=== PATIENT | male | born 1995 | race Caucasian/White ===

== ENCOUNTER 2020-01-04 19:32 | Observation (INO) | payer OTHER, SELFPAY ==
[2020-01-04] VITALS (7 sets, daily range): BP systolic 118–138; BP diastolic 64–86; PULSE 56–77; RESP 14–20; TEMP 36.3–37.1; O2SAT 98–100; BMI 21.5
--- NOTE | ~2020-01-04 | XR_ITS ---
EXAMINATION: XR chest 2V DATE: 01/04/2020 20:31 INDICATION: Tachycardia TECHNIQUE: PA and lateral views of the chest are obtained. COMPARISON: 09/18/2017 FINDINGS: The lungs are free of acute opacities. There is no pleural effusion or pneumothorax. The ca rdiomediastinal silhouette is normal. The visualized bones and soft tissues are unremarkable. IMPRESSION: 1. No acute cardiopulmonary abnormality. Reviewed, dictated and finalized at location A.
--- NOTE | ~2020-01-04 | CT_ITS ---
EXAMINATION: CT cervical spine wo con DATE: 01/05/2020 01:42 INDICATION: Status post fall. Head injury. TECHNIQUE: Computed tomography (CT) of the cervical spine was performed without intravenous contrast. The dose-length product was 167 mGy-cm. Automated exposure control and iterative reconstruction tech nique were employed. COMPARISON: None FINDINGS: No acute fracture, subluxation or dislocation. Odontoid process within normal limits. Small osteochondral defect of C2, likely of no clinical significance. No paravertebral soft tissue abnorma lity. No spinal stenosis. Lung apices are normal. IMPRESSION: 1. No acute abnormality of the cervical spine. Reviewed, dictated and finalized at location A.
--- NOTE | ~2020-01-04 | CT_ITS ---
EXAMINATION: CT BRAIN W/O DATE: 01/05/2020 01:41 INDICATION: Headache after fall TECHNIQUE: Computed tomography (CT) of the head was performed without intravenous contrast. The dose- length product was 605.33 mGy-cm. COMPARISON: 09/18/2017. FINDINGS: Normal brain parenchymal volume for age. Normal mcknight-white differentiation. No acute intrac ranial hemorrhage, infarction, mass or mass effect. No ventriculomegaly or midline shift. Midline sagittal images demonstrate a normal corpus callosum, c raniovertebral junction and sella turcica. Basilar cisterns are patent. Paranasal sinuses and mastoids are pneumatized. No depressed skull fractures. IMPRESSION: 1. No acute intracranial abnormality. Reviewed, dictated and finalized at location A.
--- NOTE | 2020-01-04 19:43 | ECG_ITS ---
Measurements Intervals [place] Rate: 56 P: 22 ID: 113 QRS: 49 QRSD: 92 T: 22 QT: 366 QTc: 354 Interpretive Statements SINUS BRADYCARDIA WITH SHORT ID INTERVAL BASELINE ARTIFACT- I, II, III, AVR, AVL,A VF BORDERLINE ECG Electronically Signed On 01-05-2020 7:44:12 CDT by Nicola Noguera D.O.
[2020-01-04 19:53] LABS: Basophils Absolute Auto 0.1 K/mm3 (0.0-0.1); Basophils Percent Auto 0.7 % (0.2-1.2); Eosinophils Absolute Auto 0.1 K/mm3 (0-0.3); Eosinophils Percent Auto 1.8 % (0-4.4); Hematocrit 46.6 % (42.0-52.0); Hemoglobin 16.4 g/dL (14.0-18.0); Immature Granulocyte Absolute 0.02 K/mm3 (0.00-0.031); Immature Granulocyte Percent A 0.3 % (0-0.5); Lymphocytes Absolute Auto 2.35 K/mm3 (0.9-3.2); Lymphocytes Percent Auto 30.7 % (18.3-44.2); Mean Corpuscular HGB Conc 35.2 g/dl (32-36); Mean Corpuscular Hemoglobin 30.4 pg (26-34); Mean Corpuscular Volume 86.3 fl (80-100); Mean Platelet Volume 9.4 fl (7.4-10.4); Monocytes Absolute Auto 0.8 K/mm3 (0.1-0.6); Monocytes Percent Auto 9.9 % (2.6-8.5); Neutrophils Absolute Auto 4.3 K/mm3 (1.3-6.7); Neutrophils Percent Auto 56.6 % (45.5-73.1); Platelet Count Result 226 k/mm3 (150-375); Red Cell Distribution Width 12.1 % (11.5-14.5); White Blood Count 7.7 K/mm3 (4.5-10.0)
[2020-01-04 20:03] LABS: Prothrombin Time 13.3 Seconds (11.1-14.7)
[2020-01-04 20:04] LABS: Partial Thromboplastin Time 27.3 SECONDS (22.3-36.8)
[2020-01-04 20:09] LABS: Anion Gap 8 mmol/L (8-16); Blood Urea Nitrogen 10 mg/dL (9-20); Calcium 9.8 mg/dL (8.4-10.2); Carbon Dioxide 30 mmol/L (22-30); Chloride 98 mmol/L (98-107); Estimated CRCL calculation 97 ml/min; Estimated Glomerular Filt Rate > 60; Glucose 99 mg/dL (75-110); Potassium 3.2 mmol/L (3.4-5.0); Sodium 136 mmol/L (137-145)
[2020-01-04 20:21] LABS: Troponin I < 0.012 ng/mL (0.000-0.034)
--- NOTE | 2020-01-04 20:22 | ED.ARRPALP ---
HPI - Arrhythmia/Palpitations General Chief Complaint: Arrhythmia/Palpitations Stated Complaint: head injury; heart problems Time Seen by Provider: 01/04/20 19:41 Source: patient Mode of arrival: ambulatory Limitations: no limitations History of Present Illness HPI narrative: 24 years old white male presents with palpitation started 4 weeks ago. Intermittent. Fluctuating between tachycardia, bradycardia and sometimes complete stop. Patient woke up yesterday 5:30 a.m. to go to the bathroom, stood next to the bed, numbness of both legs, could not move forward, then fell struck the head on The floor, Loss of consciousness for a few seconds. Today patient been complaining of intermittent dizziness, left work and drove himself to the emergency room. History of depression, quit taking medication 3 months ago because he believes that is not working Related Data Home Medications Medication Instructions Recorded Confirmed No Home Medications 01/04/20 01/04/20 Allergies Allergy/AdvReac Type Severity Reaction Status Date / Time No Known Allergies Allergy Verified 01/04/20 19:42 Review of Systems Review of Systems: Narrative: CONSTITUTIONAL: Denies fever, chills, or sweats. EYES: Denies visual changes, redness, or discharge. ENT: Denies rhinorrhea, congestion, sore throat, or otalgia. CARDIOVASCULAR: Denies chest pain, palpitations, or edema. RESPIRATORY: Denies cough or dyspnea. GASTROINTESTINAL: Denies abdominal pain, nausea, vomiting, or diarrhea. GENITOURINARY: Denies dysuria or hematuria. SKIN: Denies rash or itching. MUSCULOSKELETAL: Denies back pain, joint pain, or myalgia. NEUROLOGIC: Denies headache, numbness, or weakness. PSYCHIATRIC: Denies anxiety or depression. [facility] Past Medical History Medical History (Updated 01/04/20 @ 21:21 by Brandy Montana MD) Depression Family History Family History (Updated 09/25/17 @ 13:37 by DOCTOR UNKNOWN) Mother Patient's mother is in good health Father Patient's father is in good health Grandparent Family history of malignant neoplasm, Onset Age: 32 Family history of Alzheimer's disease, Onset Age: 88 Family history of dementia, Onset Age: 82 Social History Social History Smoking status: Never smoker Second hand tobacco smoke exposure: No Alcohol intake: current Gender identity (if verbalized by the patient): Male Exam Narrative: Exam Narrative: General appearance: Well-developed, well-nourished, anxious Skin: Normal color Head: Normocephalic, nontraumatic Eyes: Clear conjunctiva ENT: Oropharynx normal, ears normal, nose normal Neck: Supple, nontender Chest and respiratory: Airway patent, no respiratory distress, no accessory muscle use Heart: Bradycardic Abdomen: Soft, nontender, no organomegaly, quiet bowel sounds Vascular: Normal peripheral pulses, normal capillary refill. Musculoskeletal: Normal range of motion, nontender back Neurologic: Alert and oriented ?3, [employer] is normal as tested, no gross motor deficit Course Course Emergency Course: Stable Consultations Consultation #1: Dr. Delong Date: 01/04/20 Time: 22:39 Vital Signs Vital signs: Vital Signs Temperature 37.1 C 01/04/20 19:38 Pulse Rate 77 01/04/20 19:38 Respiratory Rate 18 01/04/20 19:38 Blood Pressure 138/73 01/04/20 19:38 Pulse Oximetry 100 01/04/20 19:38 Temperature 37.1 C 01/04/20 19:38 Pulse Rate 60 01/04/20 20:37 Respiratory Rate 14 01/04/20 20:37 Blood Pressure 129/78 01/04/20 20:37 Pulse Oximetry 98 01/04/20 20:37 MDM - Arrhythmia/Palpitations MDM Narrative Medical decision making narrative: Palpitation, dizziness, syncope. E
--- NOTE | 2020-01-04 20:24 | ECG_ITS ---
Measurements Intervals [place] Rate: 52 P: 9 SD: 116 QRS: 48 QRSD: 90 T: 17 QT: 388 QTc: 362 Interpretive Statements SINUS BRADYCARDIA WITH SINUS ARRHYTHMIA WITH SHORT SD INTERVAL INCOMPLETE RIGHT BUNDLE BRANCH BLOCK BASELINE ARTIFACT- I, II, III, AVL, AVF, V6 BORDERLINE ECG Electronically Signed On 01-05-2020 7:45:21 CDT by Nicola Noguera D.O.
--- NOTE | 2020-01-04 21:18 | PC.NURSE ---
called lab to add on TSH
[2020-01-04] MEDS: POTASSIUM CHLORIDE 20 MEQ PACKET (FOR LIQUID) 40 MEQ PO (21:50)
[2020-01-04 23:25] LABS: Troponin I < 0.012 ng/mL (0.000-0.034)
--- NOTE | 2020-01-04 23:36 | ADMGEN ---
This patient, Gamaliel Rodríguez, was admitted to [facility] Surg Room 313-01. Patient/family oriented to hospital policies and general routines including ID bracelet, bed and alarms, visiting hours, pain management, procedures, bathroom and other care routines, personal items, smoking policy, room service/diet, and visiting hours. Valuables list has been completed. Information on how to activate the Rapid Response Team has been discussed. Patient/Family are encouraged to report perceived risks to care and to ask questions if they do not understand what they are told or what they should do.
[2020-01-05] VITALS (12 sets, daily range): BP systolic 108–119; BP diastolic 52–64; PULSE 39–69; RESP 12–24; TEMP 36.3–36.9; O2SAT 96–100
[2020-01-05 00:55] LABS: Amphetamine Screen Urine Negative (Negative); Barbiturate Screen Urine Negative (Negative); Benzodiazepines Screen Urine Negative (Negative); Cannabinoid Screen Urine Positive (Negative); Cocaine Screen Urine Negative (Negative); Methadone Screen Urine Negative (Negative); Opiate Screen Urine Negative (Negative); Phencyclidine Screen Urine Negative (Negative)
--- NOTE | 2020-01-05 01:26 | PC.NURSE ---
Patient taken by Radiology for CT via wheelchair.
--- NOTE | 2020-01-05 01:39 | PC.NURSE ---
Patient is back from Radiology via wheelchair. Patient is in bed with no complaints at this time.
[2020-01-05 02:14] LABS: Troponin I < 0.012 ng/mL (0.000-0.034)
[2020-01-05 06:54] LABS: Anion Gap 7 mmol/L (8-16); Blood Urea Nitrogen 8 mg/dL (9-20); Calcium 9.4 mg/dL (8.4-10.2); Carbon Dioxide 33 mmol/L (22-30); Chloride 100 mmol/L (98-107); Estimated CRCL calculation 92 ml/min; Estimated Glomerular Filt Rate > 60; Glucose 93 mg/dL (75-110); Potassium 4.4 mmol/L (3.4-5.0); Sodium 140 mmol/L (137-145)
[2020-01-05] MEDS: POTASSIUM CHLORIDE 20 MEQ TABLET.ER 40 MEQ PO (08:22)
--- NOTE | 2020-01-05 11:53 | PM.CNCAR ---
Assessment and Plan Assessment and plan (1) Intermittent palpitations: Code(s): R00.2 - Palpitations Status: Acute Assessment and Plan: Pt complained for episodes of palpitations Serial EKGs and telemetry reviewed. No SVT noted. episodes of bradycardia. UDS positive cont monitoring on telemetry ECHO to evaluate LV function and r/o structural heart disease (2) Depression: Qualifiers: Depression Type: unspecified Qualified Code(s): F32.9 - Major depressive disorder, single episode, unspecified Code(s): F32.9 - Major depressive disorder, single episode, unspecified Status: Acute (3) Hypokalemia: Code(s): E87.6 - Hypokalemia Status: Acute Assessment and Plan: Initial k 3.2 now corrected keep K > 4 Thank you for consult. will fu (4) Hypothyroidism: Code(s): E03.9 - Hypothyroidism, unspecified Status: Acute Assessment and Plan: TSH > 7 History of Present Illness History of Present Illness Consult date/time: 01/05/20 Mr. Rodríguez is a pleasant 24 y/o WM with PMH of depression and anxiety who presented to [facility] due to palpitations. According to pt he experienced palpitations on/off for the last 2 months. Yesterday morning he woke up and was about to go to bathroom when he experienced syncopal episode. no CP, SOB or headache. He stood next to the bed, felt numbness of both legs, could not move forward, then fell struck the head on The floor, Loss of consciousness for a few seconds. History of depression, quit taking medication 3 months ago. According to family he does not like healthcare . Never had cardiac problems, no previous cardiac eval. Denies CVA/TIA or seizures. pt was seen and examined, chart was reviewed, case was d/w pt's family. Reason For Visit: Palpitation, anxiety, hypokalemia Review of Systems Review of Systems: All systems reviewed & are unremarkable except as noted in HPI and below Constitutional: Constitutional: Reports as per HPI Eyes: Eyes: Reports as per HPI ENT: Reports system reviewed and no additional complaints, except as documented and Reports as per HPI Cardiovascular: Cardiovascular: Reports as per HPI Respiratory: Respiratory: Reports as per HPI Gastrointestinal: Gastrointestinal: Reports as per HPI Genitourinary: Genitourinary: Reports as per HPI Musculoskeletal: Musculoskeletal: Reports as per HPI PMFSH Past Medical History Medical History (Updated 01/05/20 @ 12:08 by Luciano Beatty MD) Depression Social History Social History Years smoked: 1 Smoking status: Current some day smoker Smokeless tobacco user: chewing tobacco Second hand tobacco smoke exposure: Yes Alcohol intake: current Drinks per week: 12 Substance use: former Substance use type: marijuana Gender identity (if verbalized by the patient): Male Spiritual care concerns: No Meds Home Medications and Allergies Home Medications Medication Instructions Recorded Confirmed Type No Home Medications 01/04/20 01/04/20 History Allergies Allergy/AdvReac Type Severity Reaction Status Date / Time duloxetine Allergy Hives Verified 01/05/20 00:56 mushroom Allergy Swelling Verified 01/05/20 00:58 of Lip/Tongue/Throat Vital Signs Vital Signs - 24 hr 01/04/20 19:38 01/04/20 20:25 01/04/20 20:37 Temperature 37.1 C Pulse Rate 77 61 60 Respiratory Rate 18 17 14 Blood Pressure 138/73 129/78 Pulse Oximetry 100 100 98 01/04/20 21:27 01/04/20 22:38 01/04/20 23:08 Temperature Pulse Rate 57 L 57 L 57 L Respiratory Rate 18 16 14 Blood Pressure 123/77 129/86 118/71 Pulse Oximetry 98 100 100 01/04/20 23:30 01/05/20 00:00 01/05/20 04:00 Temperature 36.3 C L Pulse Rate 56 L 69 39 L Respiratory Rate 20 Blood Pressure 126/64 Pulse Oximetry 99 01/05/20 04:05 01/05/20 06:00 Temperature 36.8 C 36.6 C Pulse Rate 42 L 44 L Respirato
[2020-01-05] MEDS: NITROGLYCERIN SL 0.4 MG TABLET SUBLINGUAL (21:10)
[2020-01-05 23:16] LABS: Cholesterol 157 mg/dL (0-200); HDL Direct 60 mg/dL; Triglycerides 154 mg/dL (<150)
[2020-01-05 23:27] LABS: LDL Cholesterol Direct 78 mg/dL
[2020-01-06] VITALS: PULSE 43
--- NOTE | 2020-01-06 | EST_ITS ---
Patient Info Name: Gamaliel Rodríguez Age: 24 years : 1995 Gender: Male Ht: 65 in Wt: 126 lbs BSA: 1.62 m2 HR: 50 bpm BP: 134 / 79 mmHg Technical Quality: Good Exam Date: 01/06/2020 8:52 AM Exam Location: [facility] Patient Status: Inpatient Admit Date: 01/04/2020 Staff Ordering Physician: Robert Greenberg MD Newspaper Carrier: Theron Sanches RDCS Attending Provider: Robert Greenberg MD Exam Type: CA stress echo Study Info Indications R07.9 - Chest pain, unspecified Treadmill exercise stress echocardiogram is performed. History/Risk Factors Chest pain. Summary 1. Negative stress echocardiogram for ischemia by wall motion analysis. 2. Appropriate heart rate response to excersise stress. 3. Good functional capacity, achieving 12.1 METs of workload. 4. Appropriate heart rate recovery at 1 minute post exercise. Stress Echo Findings Left Ventricle Left ventricular systolic function is normal with an estimated ejection fraction of 5560 % at rest. Left ventricular ejection fraction increases post stress. Normal augmentation of all wall segments without evidence of ischemia with stress. Ventricles Name Value Normal LV Fractional Shortening/Ejection Fraction 2D/MM Visually Estimated EF 5,560 % 52-72 Protocol: Magdi Stress ECG Details Stage: REST Duration (min): 1 min : 0 sec Speed (mph): 0.0 Grade (%): 0 HR (bpm): 53 SBP (mmHg): --- DBP (mmHg): --- METS: --- Stage: REST Duration (min): 5 min : 26 sec Speed (mph): 0.0 Grade (%): 0 HR (bpm): 88 SBP (mmHg): 134 DBP (mmHg): 79 METS: --- Stage: STAGE 1 Duration (min): 1 min : 0 sec Speed (mph): 1.7 Grade (%): 10 HR (bpm): 93 SBP (mmHg): 134 DBP (mmHg): 79 METS: --- Stage: STAGE 1 Duration (min): 1 min : 6 sec Speed (mph): 1.7 Grade (%): 10 HR (bpm): 91 SBP (mmHg): 134 DBP (mmHg): 79 METS: --- Stage: STAGE 1 Duration (min): 2 min : 0 sec Speed (mph): 1.7 Grade (%): 10 HR (bpm): 97 SBP (mmHg): 134 DBP (mmHg): 79 METS: --- Stage: STAGE 1 Duration (min): 3 min : 0 sec Speed (mph): 1.7 Grade (%): 10 HR (bpm): 94 SBP (mmHg): 148 DBP (mmHg): 70 METS: --- Stage: STAGE 2 Duration (min): 1 min : 0 sec Speed (mph): 2.5 Grade (%): 12 HR (bpm): 115 SBP (mmHg): 148 DBP (mmHg): 70 METS: --- Stage: STAGE 2 Duration (min): 2 min : 0 sec Speed (mph): 2.5 Grade (%): 12 HR (bpm): 121 SBP (mmHg): 144 DBP (mmHg): 70 METS: --- Stage: STAGE 2 Duration (min): 3 min : 0 sec Speed (mph): 2.5 Grade (%): 12 HR (bpm): 120 SBP (mmHg): 144 DBP (mmHg): 70 METS: --- Stage: STAGE 3
[2020-01-06 04:00] VITALS: PULSE 37
[2020-01-06 05:52] VITALS: BP 108/52; PULSE 41; RESP 18; TEMP 36.5; O2SAT 99
[2020-01-06 08:00] VITALS: PULSE 41; PULSE 54; RESP 18; O2SAT 99
--- NOTE | 2020-01-06 08:00 | ECHO_ITS ---
Patient Info Name: Gamaliel Rodríguez Age: 24 years : 1995 Gender: Male Ht: 65 in Wt: 127 lbs BSA: 1.63 m2 Exam Date: 01/06/2020 9:18 AM Exam Location: [facility] Pulmonary Patient Status: Inpatient Admit Date: 01/04/2020 Staff Ordering Physician: Luciano Beatty MD Attending Provider: Robert Greenberg MD Referring Physician: Rogerio GIBBS; Exam Type: CA echo doppler color flow Summary 1. Left ventricular chamber dimension is normal. 2. Left ventricular systolic function is normal with an estimated ejection fraction of 5560.0 %. 3. Normal diastolic function for age. 4. There is trace tricuspid valve regurgitation. Left Ventricle Left ventricular chamber dimension is normal. Left ventricular systolic function is normal with an estimated ejection fraction of 5560.0 %. Normal diastolic function for age. Right Ventricle Right ventricle chamber size are normal. Right ventricular systolic function is normal. Left Atria Left atrial chamber dimension is normal. Right Atria Right atrial chamber dimension is normal. Aortic Valve trileaflet aortic valve is structurally and functionally normal by two-dimensional, color flow Doppler and Doppler interrogation. Pulmonic Valve Pulmonary valve is not well visualized. Mitral Valve Mitral valve is structurally and functionally normal to two-dimensional, color flow Doppler and Doppler interrogation. Tricuspid Valve The tricuspid valve leaflets are normal. There is trace tricuspid valve regurgitation. Pericardium/Pleural Pericardium is normal in appearance with no evidence for significant pericardial effusion. Left Ventricular Outflow Tract Name Value Normal LVOT 2D LVOT Diameter 2.0 cm LVOT Doppler LVOT Peak Gradient 3 mmHg LVOT Mean Gradient 1 mmHg LVOT VTI 15 cm LVOT VTI/AV VTI Ratio 0.8 LVOT Stroke Volume 48 ml LVOT CO 2.9 l/min LVOT CI 1.8 l/min/m2 Mitral Valve Name Value Normal MV Doppler MV Decel [place] 533 cm/s2 MV PHT 40 ms MV Area (PHT) 5.5 cm2 4.0-5.0 MV Diastolic Function MV E Peak Velocity 73 cm/s MV A Peak Velocity 39 cm/s MV E/A 1.9 MV Decel Time 137 ms MV Annular TDI MV E/e' (Septal) 6.7 <=8.0 MV E/e' (Lateral) 4.9 <=8.0 MV E/e' (Average) 5.8
[2020-01-06] MEDS: POTASSIUM CHLORIDE 20 MEQ TABLET.ER 40 MEQ PO (08:11)
--- NOTE | 2020-01-06 10:31 | PM.DS ---
DS: Admitting Diagnosis Admitting Diagnosis Admitting Diagnosis: Palpitation, anxiety, hypokalemia DS: Discharge Diagnosis Discharge Diagnosis (1) Intermittent palpitations: Code(s): R00.2 - Palpitations Status: Acute DS: Summary Time Spent with Patient Time attestation: Mr. Rodríguez is a pleasant 24 y/o WM with PMH of depression and anxiety who presented to [facility] due to palpitations. According to pt he experienced palpitations on/off for the last 2 months. The day of admission he woke up and was about to go to bathroom when he experienced syncopal episode. no CP, SOB or headache. History of depression, quit taking medication 3 months ago. According to family he does not like healthcare . Never had cardiac problems, no previous cardiac eval. Denies CVA/TIA or seizures. Pt was admitted to telemetry floor. Was found to have episodes of bradycardia on monitor. His initial TSH was elevated however repeated was normal. His CE and EKG were negative. UDS was positive. Pt underwent stress ECHO today which was negative. He achieved target HR and had good HR recovery. Excellent physical tolerance (achieved 12 METS). Pt feels fine today ans is eager to go home. Exam Const: General: alert and awake; No acute distress HENMT: Head: normal to inspection and atraumatic Ears: hearing grossly normal bilaterally Face and sinus: normal facial exam Eyes: General: appearance normal, both eyes and all related structures Pupils: Equal, round and reactive pupils present EOM: EOMs intact bilaterally Neck: Neck: normal visual inspection and no JVD Chest: Chest palpation & inspection: normal inspection of the chest Resp: Effort & Inspection: normal respiratory effort and no respiratory distress Auscultation: clear to auscultation bilaterally Cardio: Jugular venous distension: no JVD Rate: regular rate Heart sounds: S1 normal heart sound present, S2 normal heart sound present and no murmurs GI: Inspection: normal to inspection GI Palp: Yes Soft to palpation, No Tenderness to palpation present (GI) and Yes No hepatosplenomegaly present Auscultation: normal bowel sounds Skin: General skin exam: normal color Neuro: Cranial nerves: Yes Equal, round and reactive pupils present Extrem: General: normal to inspection and no clubbing, cyanosis or edema DS: Data Data Completed and Pending Labs on day of discharge: Labs from last 24 hours 01/05/20 22:47 Triglycerides 154 H Cholesterol 157 LDL Cholesterol Direct 78 HDL Direct 60 TSH 2.940 Discharge Plan Discharge Attending physician on discharge: Robert Greenberg Consulting providers: Jay Pinto Discharging Clinician: Luciano Beatty Anticipated Discharge Date/Time: 01/06/20 10:40 Patient Disposition: Home, Self-Care Activity: as tolerated Diet: heart healthy Patient Instructions: How to Stop Smoking (DC), Hypokalemia (DC), Pain Management (DC), Anxiety (GEN), How to Quit Using Smokeless Tobacco (DC), Antibiotic Form Stand Alone Forms: General Discharge Information Follow-up/Referrals: Robert Greenberg MD [Physician] - 1 Week Discharge Medications: No Action No Home Medications RF: 0 Date of admission: 01/04/20 21:50 Primary Care Provider: Shannan,Carito Nieves Admitting Provider: Robert Greenberg Attending physician on admission: Robert Greenberg Condition: Stable
--- NOTE | 2020-01-06 10:54 | PC.NURSE ---
pt went to do cardiac stress test. per w/c no c/o of chest pain or pressure. no symptoms.
--- NOTE | 2020-01-06 10:59 | PC.NURSE ---
at 1030 returned from stress test tolerated well.
== END 2020-01-06 11:30 | disposition home or self-care (01) ==
LOC: ANHED 21:52 → ANH3MEDSUR 22:36
PROVIDERS: Admitting Provider Specialist; Emergency Provider Emergency Medicine; PCP Family Medicine; Visit Provider Internal Medicine Cardiovascular Disease
DX: R00.2 Palpitations (principal); S06.9X9A Unspecified intracranial injury with loss of consciousness of unspecified duration, initial encounter; R07.9 Chest pain, unspecified; F32.9 Major depressive disorder, single episode, unspecified; E87.6 Hypokalemia; E03.9 Hypothyroidism, unspecified; F17.290 Nicotine dependence, other tobacco product, uncomplicated; F12.90 Cannabis use, unspecified, uncomplicated
CPT/HCPCS: 36415; 70450; 71046; 72125; 80048; 80061; 80307; 84443; 84484; 85025; 85610; 85730; 93005; 93306; 93351; 96374; 99285; A9270; G0378; G0379; J0131

== ENCOUNTER 2020-12-02 20:15 | Emergency (ER) | payer OTHER, SELFPAY ==
[2020-12-02 20:57] VITALS: BP 138/91; PULSE 96; RESP 98; TEMP 37.8
[2020-12-02 22:54] VITALS: BP 142/102; PULSE 92; RESP 18; O2SAT 98
--- NOTE | 2020-12-02 23:01 | ED.DENTAL ---
HPI - Dental/Oral General Chief complaint: Dental/Oral Stated complaint: DENTAL PAIN Time Seen by Provider: 12/02/20 22:53 History of Present Illness HPI Narrative: Patient presents with dental pain started a few days ago and getting worse had to leave work early today due to the pain. Took some leftover antibiotics at home but he continued to have pain so he came to the ER for evaluation. Reports subjective fevers at home pain is achy, constant, worse with chewing radiates up his face. Reports multiple prior dental infections before and this feels similar to his prior. Reports he has a appoint with his dentist tomorrow. Also reported some difficulty focusing at work for the past 3 weeks prior to this dental infection. Teeth map: 1. Related Data Allergies Allergy/AdvReac Type Severity Reaction Status Date / Time duloxetine Allergy Mild Hives Verified 12/02/20 23:04 mushroom Allergy Mild Swelling Verified 12/02/20 23:04 of Lip/Tongue/Throat Review of Systems Review of Systems: CONSTITUTIONAL: Denies fever, chills, or sweats. EYES: Denies visual changes, redness, or discharge. ENT: Denies rhinorrhea, congestion, sore throat, or otalgia. CARDIOVASCULAR: Denies chest pain, palpitations, or edema. RESPIRATORY: Denies cough or dyspnea. GASTROINTESTINAL: Denies abdominal pain, nausea, vomiting, or diarrhea. GENITOURINARY: Denies dysuria or hematuria. SKIN: Denies rash or itching. MUSCULOSKELETAL: Denies back pain, joint pain, or myalgia. NEUROLOGIC: Denies headache, numbness, dizziness, or weakness. PSYCHIATRIC: Denies anxiety or depression. All systems reviewed & are unremarkable except as noted in HPI and below PMFSH Past Medical History Medical History Ankle sprain (~09/2015) Depression Dermatitis (~2017) Group A streptococcal infection (~07/2015) Insomnia (~05/2016) Lumbago (~05/2016) Pain in left foot (~04/2015) Rash (~2017) Sore throat (~07/2015) Testicular mass (~02/2016) Family History Family History Mother Patient's mother is in good health Father Patient's father is in good health Grandparent Family history of malignant neoplasm, Onset Age: 32 Family history of Alzheimer's disease, Onset Age: 88 Family history of dementia, Onset Age: 82 Social History Social History Years smoked: 1 Smoking status: Current some day smoker Smokeless tobacco user: chewing tobacco Second hand tobacco smoke exposure: Yes Alcohol intake: current Drinks per week: 10 Substance use: former Substance use type: marijuana Gender identity (if verbalized by the patient): Male Spiritual care concerns: No Exam Narrative: GENERAL: Well-appearing, well-nourished, and in no acute distress. HEAD: Normocephalic, atraumatic. EYES: PERRLA and EOMI. ENT: Nares clear, no rhinorrhea or epistaxis. Mucous membranes moist. Diffusely poor dentition with mild erythema around base of his second mild tenderness to the area no purulent drainage noted NECK: Supple. No masses. No JVD EXTREMITIES: Normal range of motion. No edema. SKIN: Warm, dry, no rash. NEURO: No focal deficits. Alert and oriented x3. PSYCH: Normal mood and affect. Course Vital Signs Vital signs: Vital Signs Temperature 37.8 C H 12/02/20 20:57 Pulse Rate 96 12/02/20 20:57 Respiratory Rate 98 H 12/02/20 20:57 Blood Pressure 138/91 H 12/02/20 20:57 Temperature 37.8 C H 12/02/20 20:57 Pulse Rate 92 12/02/20 22:54 Respiratory Rate 18 12/02/20 22:54 Blood Pressure 142/102 H 12/02/20 22:54 Pulse Oximetry 98 12/02/20 22:54 MDM - Dental/Oral MDM Narrative Medical decision making narrative: H&P as above, vss, pt looks clinically well, exam with concern for dental abscess, ladditional labs/img considered, symptomatic relief available a
[2020-12-02] MEDS: KETOROLAC 30 MG/ML VIAL (*BKC) IM (23:37)
== END 2020-12-02 23:48 | disposition home or self-care (01) ==
LOC: ANHED 23:17
PROVIDERS: Emergency Provider Emergency Medicine; PCP Internal Medicine
DX: K04.7 Periapical abscess without sinus (principal)
CPT/HCPCS: 96372; 99283; J1885

== ENCOUNTER 2022-04-29 11:04 | Outpatient (CLI) | payer OTHER, SELFPAY ==
[2022-05-01 22:05] LABS: PCP NEGATIVE ng/mL (<25)
[2022-05-09 10:38] LABS: Marijuana Metabolites Positive
[2022-05-09 10:39] LABS: Amphetamines Negative; Barbiturates Negative; Benzodiazepines Negative; Cocaine Metabolites Negative
== END 2022-04-29 11:05 | disposition home or self-care (01) ==
LOC: ANHGOSHLAB 11:07
PROVIDERS: PCP Internal Medicine; Visit Provider Nurse Practitioner
DX: R41.840 Attention and concentration deficit (principal); Z79.899 Other long term (current) drug therapy
CPT/HCPCS: 80307

== ENCOUNTER 2022-06-14 10:58 | Outpatient (CLI) | payer OTHER, SELFPAY ==
[2022-06-14 18:33] LABS: Basophils Absolute Auto 0.1 K/mm3 (0.0-0.1); Basophils Percent Auto 1.1 % (0.2-1.2); Eosinophils Absolute Auto 0.2 K/mm3 (0-0.3); Eosinophils Percent Auto 4.7 % (0-4.4); Hematocrit 44.4 % (42.0-52.0); Hemoglobin 14.9 g/dL (14.0-18.0); Immature Granulocyte Absolute 0.01 K/mm3 (0.00-0.031); Immature Granulocyte Percent A 0.2 % (0-0.5); Lymphocytes Absolute Auto 1.64 K/mm3 (0.9-3.2); Lymphocytes Percent Auto 35.2 % (18.3-44.2); Mean Corpuscular HGB Conc 33.6 g/dl (32-36); Mean Corpuscular Hemoglobin 30.4 pg (26-34); Mean Corpuscular Volume 90.6 fl (80-100); Mean Platelet Volume 9.9 fl (7.4-10.4); Monocytes Absolute Auto 0.4 K/mm3 (0.1-0.6); Monocytes Percent Auto 8.4 % (2.6-8.5); Neutrophils Absolute Auto 2.4 K/mm3 (1.3-6.7); Neutrophils Percent Auto 50.4 % (45.5-73.1); Platelet Count Result 255 k/mm3 (150-375); White Blood Count 4.7 K/mm3 (4.5-10.0)
[2022-06-14 20:33] LABS: Alanine Aminotransferase 34 U/L (6-50); Albumin Level 4.6 g/dL (3.5-5.1); Alkaline Phosphatase 81 U/L (38-126); Anion Gap 6 mmol/L (8-16); Aspartate Amino Transferase 54 U/L (17-59); Bilirubin,Total 0.9 mg/dL (0.2-1.3); Blood Urea Nitrogen 10 mg/dL (9-20); Calcium 9.1 mg/dL (8.4-10.2); Carbon Dioxide 30 mmol/L (22-30); Chloride 104 mmol/L (98-107); Cholesterol 154 mg/dL (0-200); Estimated Glomerular Filt Rate > 60; Glucose 80 mg/dL (65-110); HDL Direct 56 mg/dL; Potassium 4.2 mmol/L (3.4-5.0); Sodium 140 mmol/L (137-145); Triglycerides 61 mg/dL (<150)
[2022-06-14 20:44] LABS: LDL Cholesterol Direct 78 mg/dL
== END 2022-06-14 10:59 | disposition home or self-care (01) ==
LOC: ANHGOSHLAB 11:01
PROVIDERS: PCP Internal Medicine; Visit Provider Nurse Practitioner
DX: E03.9 Hypothyroidism, unspecified (principal); Z13.29 Encounter for screening for other suspected endocrine disorder; Z13.220 Encounter for screening for lipoid disorders
CPT/HCPCS: 36415; 80053; 80061; 84443; 85025

== ENCOUNTER 2022-06-17 16:13 | Emergency (ER) | payer OTHER, SELFPAY ==
--- NOTE | ~2022-06-17 | CT_ITS ---
EXAMINATION: CT abdomen pelvis w con DATE: 06/17/2022 17:55 INDICATION: Right upper quadrant abdominal pain with nausea and vomiting TECHNIQUE: Computed tomography (CT) of the abdomen and pelvis was performed with 100 mL Omnipaque-350 intravenous contrast. Automated exposure control and iterative reconstruction technique were employe d. The dose-length product was 218.76 mGy-cm. COMPARISON: None FINDINGS: Lung bases are clear. Heart size is normal. No pericardial or pleural effusion. Liver, gallbladder, s pleen, pancreas, bilateral adrenal glands and right kidney are normal. 7 mm cyst at the upper pole of the left kidney. Normal appendix. Fluid in the proximal colon with liquid stool at the rectum consis tent with diarrhea. No bowel obstruction. Decompressed bladder is unremarkable. No free intraperitone al gas or fluid. No pathologically enlarged abdominal or pelvic lymphadenopathy. Bones are unremarkab le. IMPRESSION: 1. Fluid in the colon consistent with nonspecific diarrhea. No other acute intra-abdominal/pelvic pro cess. Reviewed, dictated and finalized at location A. ES 1 THRU [employer] IMPRESSION: 1. Fluid in the colon consistent with nonspecific diarrhea. No other acute intr a-abdominal/pelvic process.
[2022-06-17 16:33] VITALS: BP 109/68; PULSE 100; RESP 18; TEMP 37.6; O2SAT 100
[2022-06-17 16:55] LABS: Hematocrit 45.9 % (42.0-52.0); Hemoglobin 16.1 g/dL (14.0-18.0); Mean Corpuscular HGB Conc 35.1 g/dl (32-36); Mean Corpuscular Hemoglobin 30.7 pg (26-34); Mean Corpuscular Volume 87.4 fl (80-100); Mean Platelet Volume 9.3 fl (7.4-10.4); Platelet Count Result 209 k/mm3 (150-375); Red Blood Count 5.25 M/mm3 (4.6-6.20); Red Cell Distribution Width 12.8 % (11.5-14.5)
[2022-06-17 17:11] LABS: Alanine Aminotransferase 88 U/L (6-50); Albumin Level 5.1 g/dL (3.5-5.1); Alkaline Phosphatase 89 U/L (38-126); Anion Gap 8 mmol/L (8-16); Aspartate Amino Transferase 215 U/L (17-59); Bilirubin,Total 1.4 mg/dL (0.2-1.3); Blood Urea Nitrogen 15 mg/dL (9-20); Calcium 9.5 mg/dL (8.4-10.2); Carbon Dioxide 27 mmol/L (22-30); Chloride 103 mmol/L (98-107); Estimated CRCL calculation 93 ml/min; Estimated Glomerular Filt Rate > 60; Glucose 112 mg/dL (65-110); Lipase 41 U/L (23-300); Potassium 4.1 mmol/L (3.4-5.0); Sodium 138 mmol/L (137-145)
[2022-06-17 17:19] LABS: Band Neutrophils Percent 8 % (0-6); Lymphocytes Absolute Manual 0.09 K/mm3 (1.1-4.5); Monocytes Absolute Manual 0.18 K/mm3 (0.1-0.90); Monocytes Percent Manual 2 % (3-9); Neutrophils Absolute Manual 8.73 K/mm3 (1.3-6.7); Neutrophils Percent Manual 89 % (46-73); Platelet Estimate Adequate (Adequate); Schistocytes None Seen (NORMAL); Total Cells Counted 100
[2022-06-17] MEDS: ONDANSETRON INJ 4 MG/2 ML VIAL IV PUSH (17:23)
--- NOTE | 2022-06-17 17:32 | ED.NAVMDI ---
HPI - Nausea/Vomiting/Diarrhea General Chief complaint: Nausea/Vomiting/Diarrhea Stated complaint: nausea vomiting Time Seen by Provider: 06/17/22 16:59 Source: patient Mode of arrival: ambulatory Limitations: no limitations History of Present Illness HPI Narrative: Patient is a 27-year-old male who presents to the ED with report of nausea, vomiting, abdominal pain. Patient reports he developed nausea and vomiting around 6:30 AM this morning. He denies any bad food exposure, or sick contacts last night. He did have 1 episode of diarrhea today. Denies melena or rectal bleeding. Vomiting has persisted. He states he has had up to 14 episodes of emesis. He also complains of pain to his right upper abdomen which began today. He has not taken anything for the pain. Denies ever having pain like this before. Denies any fever, but does report chills. Denies urinary symptoms, chest pain, difficulty breathing. Related Data Allergies Allergy/AdvReac Type Severity Reaction Status Date / Time duloxetine Allergy Mild Hives Verified 06/17/22 17:06 mushroom Allergy Mild Swelling Verified 06/17/22 17:06 of Lip/Tongue/Throat Review of Systems Review of Systems: CONSTITUTIONAL: Reports chills. CARDIOVASCULAR: Denies chest pain. RESPIRATORY: Denies cough or dyspnea. GASTROINTESTINAL: See HPI. GENITOURINARY: Denies dysuria or hematuria. All systems reviewed & are unremarkable except as noted in HPI and below PMFSH Past Medical History Medical History Ankle sprain (~09/2015) Depression Dermatitis (~2017) Group A streptococcal infection (~07/2015) Insomnia (~05/2016) Lumbago (~05/2016) Pain in left foot (~04/2015) Rash (~2017) Sore throat (~07/2015) Testicular mass (~02/2016) Surgical History Surgical History No pertinent past surgical history Family History Family History Mother Patient's mother is in good health Father Patient's father is in good health Grandparent Family history of malignant neoplasm, Onset Age: 32 Family history of Alzheimer's disease, Onset Age: 88 Family history of dementia, Onset Age: 82 Social History Social History Years smoked: 1 Smoking status: Current some day smoker Smokeless tobacco user: chewing tobacco Second hand tobacco smoke exposure: Yes Alcohol intake: current Drinks per week: 10 Substance use: current Substance use type: marijuana Other substance usage details: thc vape Lack of Transportation: No Lack of Food: Never True Current Housing: I Have Housing Concerned About Future Housing: No Difficulty Paying Gas/Electric Bills: No Difficulty Paying for Meds: No Currently Unemployed: No Education: High School Diploma/GED Difficulty w/ Childcare or Family Care: No Gender identity (if verbalized by the patient): Male Spiritual care concerns: No Exam Narrative: GENERAL: Mildly ill appearing, well-nourished, non-toxic, in no acute distress. HEAD: Normocephalic, atraumatic. NECK: Supple. No adenopathy, no masses. RESPIRATORY: Airway patent, respirations nonlabored. Clear to auscultation bilaterally, no rales, rhonchi, wheezing. CARDIOVASCULAR: Borderline tachycardic with regular rhythm without murmurs, rubs, or gallops. Peripheral pulses 2+ and equal bilaterally. ABDOMINAL: Soft, diffuse tenderness throughout abdomen, focal tenderness in right upper quadrant, right lower quadrant. Nondistended, no hepatosplenomegaly. Normoactive BS. MUSCULOSKELETAL: Moves all extremities. Strength/ROM intact without gross deformities. SKIN: Warm, dry, normal color. No rashes. NEURO: A&O X3. Speech clear. Cranial nerves II-XII grossly intact. Steady gait. No ataxic movements. PSYCHIATRIC: Appropriate mood a
[2022-06-17] MEDS: MORPHINE SULFATE (*CRX) 4 MG/ML INJ IV PUSH (18:09)
[2022-06-17] MEDS: SODIUM CHLORIDE 0.9% IV 1,000 ML 999 ML IV CONT ×2 (18:09→19:09)
[2022-06-17 18:36] LABS: Appearance Urine Clear (Clear); Bacteria Urine None Seen /hpf; Bilirubin Urine Negative (Negative); Blood Urine Negative (Negative); Color Urine Dark Yellow (Yellow); Glucose Urine UA Negative (Negative); Hyaline Casts Urine Present /lpf; Ketones Urine 3+ mg/dL (Negative); Leukocyte Esterase Ur Negative LEU/UL (Negative); Nitrate Urine Negative (Negative); Protein Urine 1+ mg/dL (Negative); RBC Urine 0-2 /hpf (0-2); Specific Grav Ur 1.028 (1.001-1.035); Squamous Epithelial Cell Urine None seen /hpf (Few); WBC Urine 0-5 /hpf; pH Urine 7.5 (5.0-9.0)
[2022-06-17 18:38] LABS: Add Urine Microscopic? YES
[2022-06-17 18:56] LABS: Influenza A QL RT-PCR Negative (Negative); Influenza B QL RT-PCR Negative (Negative); SARS-CoV-2 RNA PCR Negative
[2022-06-17] MEDS: PANTOPRAZOLE SODIUM IV 40 MG VIAL IV PUSH (19:09)
[2022-06-17] MEDS: IBUPROFEN IV 400 MG in SODIUM CHLORIDE 0.9% IV 100 ML 208 MG IVPB (19:22)
[2022-06-17 20:50] VITALS: BP 106/51; PULSE 88; RESP 16; TEMP 37.1; O2SAT 96
[2022-06-17 21:22] VITALS: BP 104/72; PULSE 88; RESP 14; TEMP 36.8; O2SAT 99
== END 2022-06-17 21:30 | disposition home or self-care (01) ==
PROVIDERS: Emergency Medicine; Emergency Provider Physician Assistant; PCP Internal Medicine
DX: K52.9 Noninfective gastroenteritis and colitis, unspecified (principal); R10.11 Right upper quadrant pain; R94.5 Abnormal results of liver function studies; Z20.822 Contact with and (suspected) exposure to COVID-19; F32.A Depression, unspecified; F17.220 Nicotine dependence, chewing tobacco, uncomplicated
CPT/HCPCS: 36415; 74177; 80053; 81001; 83690; 85025; 87636; 96361; 96365; 96375; 99284; C9113; J1741; J2270; J2405; J7030; Q9967

== ENCOUNTER 2022-06-27 09:50 | Outpatient (CLI) | payer OTHER, SELFPAY ==
[2022-06-29 13:18] LABS: PCP NEGATIVE ng/mL (<25)
[2022-06-30 11:48] LABS: Amphetamines NEGATIVE; Marijuana Metabolites POSITIVE
[2022-06-30 11:49] LABS: Barbiturates NEGATIVE; Benzodiazepines NEGATIVE; Cocaine Metabolites NEGATIVE
== END 2022-06-27 09:51 | disposition home or self-care (01) ==
LOC: ANHGOSHLAB 09:52
PROVIDERS: PCP Internal Medicine; Visit Provider Nurse Practitioner
DX: R41.840 Attention and concentration deficit (principal); Z79.899 Other long term (current) drug therapy
CPT/HCPCS: 80307

== ENCOUNTER 2022-08-08 13:51 | Outpatient (CLI) | payer OTHER, SELFPAY ==
[2022-08-10 18:12] LABS: Amphetamines NEGATIVE ng/mL (<500); Barbiturates NEGATIVE ng/mL (<300); Benzodiazepines NEGATIVE ng/mL (<100); Cocaine Metabolite NEGATIVE ng/mL (<150); Marijuana Metabolite NEGATIVE ng/mL (<20); Methadone Metabolite NEGATIVE ng/mL (<100); Opiates NEGATIVE ng/mL (<100); Oxidant NEGATIVE mcg/mL (<200); pH 6.7 (4.5-9.0)
== END 2022-08-08 13:52 | disposition home or self-care (01) ==
LOC: ANHGOSHLAB 13:53
PROVIDERS: PCP Internal Medicine; Visit Provider Nurse Practitioner
DX: Z79.899 Other long term (current) drug therapy (principal)
CPT/HCPCS: 80307